=== PATIENT | male | born 1970 | race Two or more races ===

== ENCOUNTER 2017-08-31 17:02 | Emergency (ER) | payer SELFPAY ==
[~2017-08-31] VITALS: Ht 175.3 cm; Wt 86.2 kg
[2017-08-31 17:05] VITALS: BP 126/77
--- NOTE | 2017-08-31 17:24 | PHYS DOC ---
Adult General Chief Complaint Chief Complaint: KNEE INJURY [facility] HPI Patient is a 47 year old male presents the ED complaining of right knee injury around 1 am last night. States he was walking home this morning after leaving a bar at 1 in the morning and fell off a wall about 4 feet tall. States he passed out and ended up sleeping there. States he woke and EMS wanted to bring him to the ED but he had to go to work instead. States he came to the ER this evening because he is having right knee pain from the fall. Denies fever, syncope, symptoms prior to fall, headache, vision changes, n/v, dizzness, chest pain or shortness of breath. States he only drinks alcohol on the weekends. Review of Systems Review of Systems Constitutional: Denies fever or chills [] Eyes: Denies change in visual acuity, redness, or eye pain [] HENT: Denies nasal congestion or sore throat [] Respiratory: Denies cough or shortness of breath [] Cardiovascular: No additional information not addressed in HPI [] GI: Denies abdominal pain, nausea, vomiting, bloody stools or diarrhea [] : Denies dysuria or hematuria [] Musculoskeletal: Denies back pain. Complains of right knee injury. [] Integument: Denies rash or skin lesions [] Neurologic: Denies headache, focal weakness or sensory changes [] Endocrine: Denies polyuria or polydipsia [] Allergies Allergies Allergies Coded Allergies Type Severity Reaction Last Updated Verified No Known Drug Allergies 08/31/17 No Physical Exam Physical Exam Constitutional: Well developed, well nourished, no acute distress, non-toxic appearance. [] HENT: Normocephalic, atraumatic, bilateral external ears normal, oropharynx moist, no oral exudates, nose normal. [] Eyes: PERRLA, EOMI, conjunctiva normal, no discharge. [] Neck: Normal range of motion, MILD RIGHT PARASPINAL CERVICAL TENDERNESS. supple , no stridor. [] Cardiovascular:Heart rate regular rhythm, no murmur [] Lungs & Thorax: Bilateral breath sounds clear to auscultation [] Abdomen: Bowel sounds normal, soft, no tenderness, no masses, no pulsatile masses. [] Skin: Warm, dry, no erythema, no rash. [] Back: No tenderness, no CVA tenderness. [] Extremities: MILD RIGHT MEDIAL KNEE TENDERNESS, no cyanosis, no clubbing, ROM intact, no edema. [] Neurologic: Alert and oriented X 3, normal motor function, normal sensory function, no focal deficits noted. [] Psychologic: Affect normal, judgement normal, mood normal. [] Current Patient Data Vital Signs Vital Signs Date Time Temp Pulse Resp B/P (MAP) Pulse Ox O2 Delivery O2 Flow Rate FiO2 08/31/17 17:05 98.1 104 14 94 Room Air 98.1 EKG EKG [] Radiology/Procedures Radiology/Procedures PROCEDURE: KNEE RIGHT 3V Three-view right knee radiographs 08/31/2017 Clinical history: Fall with injury to the right knee. AP, lateral and oblique digital radiographs of the right knee were obtained. No fracture or dislocation of the right knee is seen. There is no radiographic evidence of a joint effusion. Impression: No fracture or dislocation of the right knee is seen. PROCEDURE: CT HEAD AND CERVICAL SPINE WO CT of the head and cervical spine without contrast History:fell from 4ft wall Technique: Standard noncontrast images are obtained. Exposure: One or more of the following individualized dose reduction techniques were utilized for this examination: 1. Automated exposure control 2. Adjustment of the mA and/or kV according to patient size 3. Use of iterative reconstruction technique. Head Posterior fossa is unremarkable. No evidence of acute intracranial hemorrhage, mass effect, midline shift or abnormal extra-axial fluid collection. Narayan-white matter distinction is intact. Mild prominence of ventricles and sulci could indicate mild atrophy. Unremarkable Partially visualized, mild ethmoid sinus mucosal thickening. No evidence of depressed skull fracture. Impression: 1. No evidence of acute intracranial abnormality. 2. Mild ethmoid sinus disease. Cervical: Lower skull is unremarkable Ring of C1 is intact Relationship of C1 with the occipital condyles is intact. Relationship of C1 with C2 is maintained. No evidence of an acute fracture. No significant traumatic subluxation. No evidence of perched or locked facet joint. Mild degenerative changes are present particularly at the right C2-C3 facet joint. No significant subluxation. The paraspinous soft tissues are unremarkable. Lung apices are clear. Impression: No evidence of acute fracture or traumatic subluxation. [] Course & Med Decision Making Course & Med Decision Making Pertinent Labs and Imaging studies reviewed. (See chart for details) []Discussed imaging with patient. Patient's pain improved. Vital stable, no acute distress. Knee immobilizer placed. Neurovascular intact post placement. Crutches given. Discussed follow-up with orthopedics early next week. Discussed reasons to return to the ED. Patient understands and agrees with plan. Dragon Disclaimer Dragon Disclaimer This electronic medical record was generated, in whole or in part, using a voice recognition dictation system. Departure Departure Impression: Primary Impression: Head injury Additional Impressions: Muscle strain Knee injury Disposition: HOME, SELF-CARE Condition: IMPROVED Referrals: MAGUI FLETCHER MD Patient Instructions: Concussion and Brain Injury, Knee Sprain Scripts Ibuprofen (IBUPROFEN) 800 Mg Tablet 800 MG PO PRN Q6HRS Y for INFLAMMATION, #14 TAB Prov: SHAHBAZ HOLBROOK 08/31/17 Problem Qualifiers SHAHBAZ HOLBROOK Aug 31, 2017 17:24
--- NOTE | 2017-08-31 18:17 | RAD ---
CT of the head and cervical spine without contrast History:fell from 4ft wall Technique: Standard noncontrast images are obtained. Exposure: One or more of the following individualized dose reduction techniques were utilized for this examination: 1. Automated exposure control 2. Adjustment of the mA and/or kV according to patient size 3. Use of iterative reconstruction technique. Head Posterior fossa is unremarkable. No evidence of acute intracranial hemorrhage, mass effect, midline shift or abnormal extra-axial fluid collection. Narayan-white matter distinction is intact. Mild prominence of ventricles and sulci could indicate mild atrophy. Unremarkable Partially visualized, mild ethmoid sinus mucosal thickening. No evidence of depressed skull fracture. Impression: 1. No evidence of acute intracranial abnormality. 2. Mild ethmoid sinus disease. Cervical: Lower skull is unremarkable Ring of C1 is intact Relationship of C1 with the occipital condyles is intact. Relationship of C1 with C2 is maintained. No evidence of an acute fracture. No significant traumatic subluxation. No evidence of perched or locked facet joint. Mild degenerative changes are present particularly at the right C2-C3 facet joint. No significant subluxation. The paraspinous soft tissues are unremarkable. Lung apices are clear. Impression: No evidence of acute fracture or traumatic subluxation. Electronically signed by: Billy Knott MD (08/31/2017 6:14 PM) [id number]
[2017-08-31] MEDS ORDERED: IBUP-1060 PO (18:33)
--- NOTE | 2017-09-01 08:29 | RAD ---
Three-view right knee radiographs 08/31/2017 Clinical history: Fall with injury to the right knee. AP, lateral and oblique digital radiographs of the right knee were obtained. No fracture or dislocation of the right knee is seen. There is no radiographic evidence of a joint effusion. Impression: No fracture or dislocation of the right knee is seen.
== END 2017-08-31 18:41 | disposition home or self-care (01) ==
LOC: ER 17:02
DX: S16.1XXA Strain of muscle, fascia and tendon at neck level, initial encounter (principal); S09.90XA Unspecified injury of head, initial encounter; S89.91XA Unspecified injury of right lower leg, initial encounter; W13.8XXA Fall from, out of or through other building or structure, initial encounter; Y93.01 Activity, walking, marching and hiking; Y92.89 Other specified places as the place of occurrence of the external cause; Y99.8 Other external cause status
CPT/HCPCS: 29505; 70450; 72125; 73562; 99284-25

== ENCOUNTER 2018-01-24 14:14 | Emergency (ER) | payer SELFPAY ==
[2018-01-24] MEDS: HYDROcodone/APAP 10/325 1 TAB TABLET PO (14:51)
[2018-01-24] MEDS: LIDOCAINE WITH 8.4% SOD BICARB 3 ML DISP.SYRIN. INJ (14:52)
[2018-01-24] MEDS: cefTRIAXone IM 1 GM VIAL IM (14:52)
== END 2018-01-24 15:50 | disposition home or self-care (01) ==
LOC: ER 14:14
DX: L02.413 Cutaneous abscess of right upper limb (principal); F17.200 Nicotine dependence, unspecified, uncomplicated
CPT/HCPCS: 96372; 99284; J0696

== ENCOUNTER 2018-04-26 00:20 | Emergency (ER) | payer SELFPAY ==
[2018-04-26] MEDS ORDERED: LIDOCAINE 2% 20 ML VIAL. (00:33)
[2018-04-26] MEDS: LIDOCAINE 2% 20 ML VIAL. IJ (00:36)
[2018-04-26] MEDS: DIPHTH,PERTUSS(ACELL),TET TOX 0.5 ML DISP.SYRIN. VAX IM (01:44)
== END 2018-04-26 02:00 | disposition home or self-care (01) ==
LOC: ER 00:20
DX: S01.411A Laceration without foreign body of right cheek and temporomandibular area, initial encounter (principal); W26.0XXA Contact with knife, initial encounter; Y93.89 Activity, other specified; Y92.89 Other specified places as the place of occurrence of the external cause; Y99.8 Other external cause status
CPT/HCPCS: 12014; 90471; 90715; 99283